=== PATIENT | female | born 1995 | race African-American/Black ===

== ENCOUNTER 2016-10-05 01:30 | Emergency (ER) | payer OTHER ==
[~2016-10-05 01:30] MED LIST: AMOXICILLIN PO; ATARAX PO; FLAGYL PO; FLAGYL250 M1 PO; MOTRIN600 M1 PO; NO MEDICATIONS; PEPCID AC20 M2 PO; PREDNISONE PO; SKELAXIN PO; ZOVIRAX800 MG PO
[2016-10-05 03:00] LABS: URINE SOURCE CLEAN CATCH
[2016-10-05 03:02] LABS: URINE APPEARANCE CLEAR; URINE BILIRUBIN NEG (NEG); URINE BLOOD NEG (NEG); URINE COLOR YELLOW; URINE GLUCOSE NEG (NORM); URINE KETONE NEG (NEG); URINE LEUKOCYTE ESTERASE NEG (NEG); URINE NITRATE NEG (NEG); URINE PROTEIN NEG (NEG)
[2016-10-05 03:03] LABS: MICRO INDICATED? NO
== END 2016-10-05 03:47 | disposition home or self-care (01) ==
LOC: SED 01:30
PROVIDERS: Emergency Medicine
DX: N76.1 Subacute and chronic vaginitis (principal)
CPT/HCPCS: 81003; 84703; 99283